=== PATIENT | male | born 1990 | race Caucasian/White ===

== ENCOUNTER 2017-05-03 06:47 | Emergency (ER) | payer SELFPAY, BC ==
[2017-05-03 07:37] LABS: #Basophils 0.1 thou/uL (0.0-0.2); #Eosinphils 0.2 thou/uL (0.0-0.7); #Lymphocytes 2.5 thou/uL (1.20-3.40); #Monocytes 1.2 thou/uL (0.11-0.59); #Neutrophils 5.5 thou/uL (1.40-6.50); %Basophils 0.7 % (0.0-1.0); %Eosinophils 1.8 % (0.0-10.0); %Lymphocytes 26.8 % (21.0-51.0); %Monocytes 12.3 % (0.0-10.0); Hematocrit 46.9 % (42.0-52.0); Mean Platelet Volume 7.9 fL (7.4-10.4); Red Blood Cell (RBC) Count 5.41 mill/uL (4.70-6.10); White Blood Cell (WBC) Count 9.4 thou/uL (4.8-10.8)
[2017-05-03 07:39] LABS: ALT (SGPT) 53 U/L (8-55); AST (SGOT) 31 U/L (5-34); Alkaline Phosphatase 84 U/L (40-150); Anion Gap 12 mmol/L (10-20); BUN (Urea Nitrogen) 14 mg/dL (8.9-20.6); Bilirubin, Total 0.3 mg/dL (0.2-1.2); Calc. Creatinine Clearance 0 mL/min (70-130); Calcium 9.3 mg/dL (7.8-10.44); Carbon Dioxide 24 mmol/L (22-29); Chloride 105 mmol/L (98-107); Estimated GFR-MDRD Greater than 90; Globulin 3.4 g/dL (2.4-3.5); Lipase 14 U/L (8-78); Protein, Total 7.4 g/dL (6.0-8.3)
[2017-05-03 09:13] LABS: Bilirubin Negative (Negative); Blood, Urine Large (Negative); Glucose, Urine (Dipstick) Negative (Negative); Ketone, Urine Negative (Negative); Nitrite Negative (Negative); Protein, Urine (Dipstick) Negative (Neg-Trace); Urobilinogen 0.2 mg/dL (0.2-1.0)
[2017-05-03 09:15] LABS: Bacteria/HPF None Seen HPF (None Seen); Hyaline Casts/LPF 0-3 HYALINE CAST LPF (0-3 Hyaline); Squamous Epithelial None Seen HPF (0-3); WBC/HPF 0-3 HPF (0-3)
--- NOTE | 2017-05-03 12:13 | CT ---
CT ABDOMEN AND PELVIS WITHOUT CONTRAST: Date: 05/03/17 HISTORY: Pain. Evaluate for appendicitis. COMPARISON: [facility] protocol dated 02/10/13. FINDINGS: Lung bases are clear. No pericardial effusion. There is abnormal submucosa fatty infiltration in a majority of the colon, as well as terminal ileum. There is also submucosal fatty infiltration of the proximal small bowel loops. The appendix is visua lized and is normal. Mild increased number of ileocolic lymph nodes. Aortoiliac contour is normal. No nephroureterolithiasis or hydroureteronephrosis. No secondary eviden ce of recently passed stone. No dilated loops of large or small bowel. Noncontrast evaluation of the liver, gallbladder, spleen, a nd adrenal glands are all unremarkable. Skeleton is unremarkable. IMPRESSION: 1. Normal appendix. 2. No nephroureterolithiasis or hydroureteronephrosis. No secondary evidence of recently passed ston e. 3. Abnormal submucosal fatty infiltration throughout the colon, as well as multiple loops of small b owel and terminal ileum and cecal apex suggests chronic inflammatory bowel disease such as Crohn's. N onemergent GI follow-up recommended. POS: [facility]
[2017-05-03] MEDS ORDERED: Iopamidol 370 76% 50 ML VIAL FS ONE (13:47)
== END 2017-05-03 10:47 | disposition home or self-care (01) ==
LOC: ERS 06:47
DX: R10.31 Right lower quadrant pain (principal)
CPT/HCPCS: 36415; 74176; 80053; 81003; 81015; 83690; 85025

== ENCOUNTER 2018-11-15 19:26 | Emergency (ER) | payer BC, SELFPAY ==
[2018-11-15 20:42] LABS: #Basophils 0.1 thou/uL (0.0-0.2); #Eosinphils 0.2 thou/uL (0.0-0.7); #Lymphocytes 3.3 thou/uL (1.20-3.40); #Monocytes 1.7 thou/uL (0.11-0.59); #Neutrophils 10.7 thou/uL (1.40-6.50); %Basophils 0.5 % (0.0-1.0); %Eosinophils 1.1 % (0.0-10.0); %Lymphocytes 20.6 % (21.0-51.0); %Monocytes 10.7 % (0.0-10.0); %Neutrophils 67.1 % (42.0-75.0); Hemoglobin 16.3 g/dL (14.0-18.0); Mean Corpuscular HGB CONC 34.4 g/dL (32.0-36.0); Mean Corpuscular Hemoglobin 29.7 pg (27.0-31.0); Mean Corpuscular Volume 86.2 fL (78.0-98.0); Mean Platelet Volume 7.8 fL (7.4-10.4); Platelet Count 319 thou/uL (130-400); RBC Distribution Width 11.9 % (11.5-14.5); Red Blood Cell (RBC) Count 5.48 mill/uL (4.70-6.10); White Blood Cell (WBC) Count 15.9 thou/uL (4.8-10.8)
[2018-11-15 21:03] LABS: ALT (SGPT) 51 U/L (8-55); AST (SGOT) 26 U/L (5-34); Albumin 4.8 g/dL (3.5-5.0); Alkaline Phosphatase 97 U/L (40-150); Anion Gap 16 mmol/L (10-20); BUN (Urea Nitrogen) 21 mg/dL (8.9-20.6); Bilirubin, Total 0.7 mg/dL (0.2-1.2); CK (CPK) 192 U/L (30-200); Calc. Creatinine Clearance 0 mL/min (70-130); Calcium 10.2 mg/dL (7.8-10.44); Carbon Dioxide 23 mmol/L (22-29); Chloride 103 mmol/L (98-107); Estimated GFR-MDRD 68; Globulin 3.5 g/dL (2.4-3.5); Glucose 104 mg/dL (70-105); Potassium 3.8 mmol/L (3.5-5.1); Protein, Total 8.3 g/dL (6.0-8.3); Sodium 138 mmol/L (136-145)
== END 2018-11-15 23:47 | disposition home or self-care (01) ==
LOC: ERS 19:26
DX: T67.5XXA Heat exhaustion, unspecified, initial encounter (principal); K58.9 Irritable bowel syndrome, unspecified; Z87.442 Personal history of urinary calculi
CPT/HCPCS: 80053; 82550; 85025; 96360; 96361